=== PATIENT | female | born 1990 | race Caucasian/White ===

== ENCOUNTER 2023-06-10 08:49 | Emergency (ER) | payer BC ==
[2023-06-10 09:08] VITALS: BP 141/88; O2SAT 98
--- NOTE | 2023-06-10 10:26 | ED Physician Documentation ---
PD HPI FEMALE - Stated complaint Stated Complaint: /BLEEDING - Chief complaint Chief Complaint: Abd Pain - History obtained from History obtained from: Patient, Family (mother) - History of Present Illness Timing - onset: How many weeks ago (1) Timing - duration: Weeks (1) Timing - details: Abrupt onset, Still present Associated symptoms: Vaginal bleeding Contributing factors: control (has taken control to regulate period and has developed bleeding after the first week) Similar symptoms before: Diagnosis (DUB related to use of control) Recently seen: Clinic - Additional information Additional information: Sophia Joshi is a 33-year-old female who has recently started some weight loss program and she has had some irregular periods and she restarted some control to attempt to regulate her periods. After about 1 week she developed heavy bleeding and this has worsened. She is now bleeding about 1 pad per hour. She has had an experience previously with taking the control and having it because excessive bleeding which lasted about 1 week. She has not developed nausea or lightheadedness. Review of Systems Constitutional: denies: Fever Ears: denies: Ear pain Nose: denies: Congestion Throat: denies: Sore throat Cardiac: denies: Chest pain / pressure, Palpitations Respiratory: denies: Dyspnea, Cough GI: reports: Abdominal Pain (pelvic cramping). denies: Nausea, Vomiting, Constipation, Diarrhea : denies: Dysuria, Frequency PD PAST MEDICAL HISTORY - Past Medical History Past Medical History: No - Past Surgical History Past Surgical History: No - Allergies Allergies/Adverse Reactions: Allergies Allergy/AdvReac Type Severity Reaction Status Date / Time No Known Drug Allergies Allergy Verified 06/10/23 09:05 - Social History Does the pt smoke?: No Smoking Status: Never smoker PD ED PE NORMAL - Vitals Vital signs reviewed: Yes (hypertensive ) - General General: Alert and oriented X 3, No acute distress, Well developed/nourished - HEENT HEENT: Atraumatic, PERRL, EOMI - Respiratory Respiratory: No respiratory distress - Derm Derm: Normal color, Warm and dry, No rash - Extremities Extremities: No deformity, No edema - Neuro Neuro: Alert and oriented X 3, 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, No motor deficit, No sensory deficit, Normal speech Eye Opening: Spontaneous Motor: Obeys Commands Verbal: Oriented GCS Score: 15 - Psych Psych: Normal mood, Normal affect Results - Vitals Vitals: Vital Signs - 24 hr 06/10/23 08:57 Temperature 36.2 C L Heart Rate 95 Respiratory 18 Rate Blood Pressure 141/88 H O2 Saturation 98 Oxygen O2 Source Room air - Labs Labs: Laboratory Tests 06/10/23 06/10/23 10:28 10:28 WBC 7.5 RBC 5.16 Hgb 13.9 Hct 44.6 MCV 86.4 MCH 26.9 L MCHC 31.2 L RDW 14.6 Plt Count 318 MPV 10.0 Neut # (Auto) 5.2 Lymph # (Auto) 1.9 Coffey # (Auto) 0.3 Eos # (Auto) 0.1 Baso # (Auto) 0.1 Absolute Nucleated RBC 0.00 Nucleated RBC % 0.0 Sodium 140 Potassium 3.7 Chloride 105 Carbon Dioxide 29 Anion Gap 6.0 BUN 12 Creatinine 0.6 Estimated GFR (MDRD) 116 Glucose 88 Calcium 9.1 Total Bilirubin 0.4 AST 19 ALT 21 Alkaline Phosphatase 59 Total Protein 7.5 Albumin 4.4 Globulin 3.1 Albumin/Globulin Ratio 1.4 Lipase 10 L Serum HCG, Qual NEGATIVE PD Medical Decision Making - ED course Complexity details: considered differential, d/w patient, d/w family Reviewed Lab Results: We reviewed a complete blood count showing normal white blood cell count normal hemoglobin hematocrit and platelets chemistries were also unremarkable with normal electrolytes normal kidney and liver function and the hCG was negative.In this patient with excessive vaginal bleeding I interpret these laboratory studies to indicate the patient is not at risk of collapse from excessive blood loss ED course: 33-year-old female with excessive vaginal bleeding after taking control has normal blood counts and normal vital signs. I have consulted the THEATRICAL PERFORMER doctor on-call and she recommends that we asked the patient to take her control pills 3/day for 3 days 2/day for 2 days and then finish off the pack. I discussed this with the patient and she is reluctant to do this she is getting going to be getting onto an airplane tomorrow to go back home and will follow-up with her primary care when she returns there. Departure - Departure Disposition: Home, Self Care Clinical Impression: Dysfunctional uterine bleeding Condition: Stable Instructions: ED Bleed Irregular Vaginal Follow-Up: Your, primary care doctor [Other] Comments: Sophia, today we were able to check your blood counts and we are happy to report to you that they are normal. So despite the excessive amount of bleeding you are not in danger of collapsed right now. My recommendation is to follow-up with your primary care doctor when you return home if your bleeding has not resolved. Alternatively if you are excessively concerned and want your bleeding stopped you can attempt to use your control pill and the recommendation for the dosage of this is to take 3 control pills at once for 3 days followed by 2/day for 2 days and then finish off the package skipping the placebo. If you develope symptoms of lightheadedness and dizziness or fainting return to see us.
[2023-06-10 10:45] LABS: BASOPHILS # (AUTO) 0.1 10^3/uL (0.0-0.1); BASOPHILS % (AUTO) 0.7 %; EOSINOPHILS # (AUTO) 0.1 10^3/uL (0.0-0.7); EOSINOPHILS % (AUTO) 0.7 %; HCT - HEMATOCRIT 44.6 % (37.0-47.0); HGB - HEMOGLOBIN 13.9 g/dL (12.0-16.0); LYMPHOCYTES # (AUTO) 1.9 10^3/uL (1.5-3.5); LYMPHOCYTES % (AUTO) 25.2 %; MEAN CORPUSCULAR HEMOGLOBIN 26.9 pg (27.0-31.0); MEAN CORPUSCULAR HGB CONC 31.2 g/dL (32.0-36.0); MEAN CORPUSCULAR VOLUME 86.4 fL (81.0-99.0); MONOCYTES # (AUTO) 0.3 10^3/uL (0.0-1.0); MONOCYTES % (AUTO) 4.4 %; NEUTROPHILS # (AUTO) 5.2 10^3/uL (1.5-6.6); NEUTROPHILS % (AUTO) 68.7 %; PLT - PLATELET COUNT 318 10^3/uL (130-450); RED BLOOD COUNT 5.16 10^6/uL (4.20-5.40); RED CELL DISTRIBUTION WIDTH 14.6 % (12.0-15.0); WHITE BLOOD COUNT 7.5 x10^3/uL (4.8-10.8)
[2023-06-10 10:56] LABS: ALBUMIN 4.4 g/dL (3.2-5.5); ALBUMIN/GLOBULIN RATIO 1.4 (1.0-2.2); ALKALINE PHOSPHATASE 59 IU/L (42-121); ALT ALANINE AMINOTRANSFERASE 21 IU/L (10-60); AST ASPARTATE AMINOTRANSFERASE 19 IU/L (10-42); BILIRUBIN,TOTAL 0.4 mg/dL (0.2-1.0); BUN - BLOOD UREA NITROGEN 12 mg/dL (6-20); CALCIUM 9.1 mg/dL (8.5-10.3); CARBON DIOXIDE - CO2 29 mmol/L (21-32); CHLORIDE 105 mmol/L (101-111); CREATININE 0.6 mg/dL (0.6-1.3); GFR - MDRD 116 (>89); GLUCOSE 88 mg/dL (74-104); LIPASE 10 U/L (11-82); POTASSIUM 3.7 mmol/L (3.5-4.5); SODIUM 140 mmol/L (135-145); TOTAL PROTEIN 7.5 g/dL (6.4-8.9)
[2023-06-10 11:04] LABS: HCG,QUALITATIVE BLOOD NEGATIVE
== END 2023-06-10 12:09 | disposition home or self-care (01) ==
LOC: ED 08:49
DX: N93.8 Other specified abnormal uterine and vaginal bleeding (principal)
CPT/HCPCS: 36415; 80053; 83690; 84703; 85025; 99283; 99284